=== PATIENT | male | born 1950 | race Caucasian/White ===

== ENCOUNTER 2018-01-27 09:42 | Observation (INO) | payer BC, MEDICARE, OTHER, SELFPAY ==
[2018-01-27] MEDS ORDERED: traMADol 50 MG TAB PO ×2 (09:45)
[2018-01-27] MEDS: LR 1,000 ML IV ×6 (10:30→23:38)
[2018-01-27 11:45] LABS: BEDSIDE GLUCOSE 97 MG/DL (80-115)
[2018-01-27] MEDS: ALLOPURINOL 300 MG TAB PO ×2 (13:03)
[2018-01-27] MEDS: ATORVASTATIN 20 MG TAB PO ×2 (13:03)
[2018-01-27] MEDS: FINASTERIDE 5 MG TAB PO ×2 (13:03)
[2018-01-27 17:00] LABS: BEDSIDE GLUCOSE 107 MG/DL (80-115)
[2018-01-27] MEDS: metFORMIN XR 500MG TAB *GLUCOPHAGE XR PO ×2 (17:24)
[2018-01-27 17:28] LABS: ANION GAP 7 MEQ/L (8-16); BLOOD UREA NITROGEN 24 MG/DL (7-18); CALCIUM LEVEL 10.3 MG/DL (8.8-10.2); CARBON DIOXIDE LEVEL 32 MEQ/L (21-32); CHLORIDE LEVEL 100 MEQ/L (98-107); CREATININE FOR GFR 1.39 MG/DL (0.70-1.30); GLOMERULAR FILTRATION RATE 53.9 (>49); GLUCOSE, FASTING 102 MG/DL (70-100); POTASSIUM SERUM 3.6 MEQ/L (3.5-5.1); SODIUM LEVEL 139 MEQ/L (136-145)
[2018-01-27 21:20] LABS: BEDSIDE GLUCOSE 123 MG/DL (80-115)
[2018-01-27] MEDS: GABAPENTIN 300 MG CAP PO ×2 (21:21)
[2018-01-27] MEDS: TAMSULOSIN 0.4 MG CAP PO ×2 (21:22)
[2018-01-28] MEDS: LR 1,000 ML IV ×2 (05:03)
[2018-01-28 05:23] LABS: BEDSIDE GLUCOSE 88 MG/DL (80-115)
[2018-01-28] MEDS: ATORVASTATIN 20 MG TAB PO ×2 (08:56)
[2018-01-28] MEDS: FINASTERIDE 5 MG TAB PO ×2 (08:57)
[2018-01-28] MEDS: ALLOPURINOL 300 MG TAB PO ×2 (08:57)
[2018-01-28] MEDS: metFORMIN XR 500MG TAB *GLUCOPHAGE XR PO ×2 (08:57)
== END 2018-01-28 09:58 | disposition home or self-care (01) ==
LOC: M MSPAV 09:42
PROVIDERS: Urology
DX: N20.1 Calculus of ureter (principal); R79.89 Other specified abnormal findings of blood chemistry; I10 Essential (primary) hypertension; E11.9 Type 2 diabetes mellitus without complications; M10.9 Gout, unspecified
CPT/HCPCS: 80048